=== PATIENT | male | born 1935 | race Caucasian/White ===

== ENCOUNTER 2019-09-28 16:14 | Emergency (ER) | payer MEDICARE, OTHER ==
[2019-09-28 16:22] VITALS: BP 139/56
--- NOTE | 2019-09-28 16:57 | ER Document Report ---
ED Medical Screen (RME) - General Chief Complaint: Fall Injury Stated Complaint: FELL - RIGHT ELBOW Time Seen by Provider: 09/28/19 16:46 Primary Care Provider: ALVARO SCHRADER MD [Primary Care Provider] - Follow up as needed Mode of Arrival: Ambulatory Information source: Patient Notes: 84-year-old male presents emergency department with right elbow laceration pain. Reports his dog jumped out of his arm and he fell and landed on his elbow. Patient is taking anticoagulants. Reports he did not hit his head. Also complains of some right shoulder pain. Laceration skin tear to the right elbow. Patient reports his tetanus is up-to-date I have greeted and performed a rapid initial assessment of this patient. A comprehensive ED assessment and evaluation of the patient, analysis of test results and completion of the medical decision making process will be conducted by additional ED providers. Past Medical History - Social History Chew tobacco use (# tins/day): No Frequency of alcohol use: None Drug Abuse: None - Past Medical History Cardiac Medical History: Reports: Hx Heart Attack, Hx Hypertension Endocrine Medical History: Reports: Hx Diabetes Mellitus Type 2 Renal/ Medical History: Reports: Hx Kidney Stones Past Surgical History: Reports: Hx Cardiac Catheterization, Hx Kidney (Renal Surgery) Physical Exam - Vital signs Vitals: Temp Pulse Resp BP Pulse Ox 97.9 F 59 L 16 139/56 H 96 09/28/19 16:21 09/28/19 16:21 09/28/19 16:21 09/28/19 16:21 09/28/19 16:21 Course - Vital Signs Vital signs: Temp Pulse Resp BP Pulse Ox 97.9 F 59 L 16 139/56 H 96 09/28/19 16:21 09/28/19 16:21 09/28/19 16:21 09/28/19 16:21 09/28/19 16:21 Doctor's Discharge - Discharge Referrals: ALVARO SCHRADER MD [Primary Care Provider] - Follow up as needed
--- NOTE | 2019-09-28 17:33 | RADIOLOGY REPORT (SQ) ---
EXAM DESCRIPTION: CT HEAD WITHOUT COMPLETED DATE/TIME: 09/28/2019 5:04 pm REASON FOR STUDY: fall taking antibx COMPARISON: None. TECHNIQUE: Axial images acquired through the brain without intravenous contrast. Images reviewed wi th bone, brain and subdural windows. Additional sagittal and coronal reconstructions were generated. Images stored on PACS. All CT scanners at this facility use dose modulation, iterative reconstruction, and/or weight based d osing when appropriate to reduce radiation dose to as low as reasonably achievable (ALARA). [facility]: Dose Right [facility]: CareDose [facility]: Dose Right [facility]: Teradose 4D [facility]: Smart [place] RADIATION DOSE: CT Rad equipment meets quality standard of care and radiation dose reduction techniq ues were employed. CTDIvol: 53.2 mGy. DLP: 1097 mGy-cm. mGy. LIMITATIONS: None. FINDINGS: VENTRICLES: Prominent ventricles secondary to involutional atrophy. CEREBRUM: Cortical atrophy. No masses. No hemorrhage. No midline shift. No evidence for acute inf arction. Areas of low density in the white matter most likely chronic small vessel ischemic changes. CEREBELLUM: No masses. No hemorrhage. No alteration of density. No evidence for acute infarction. EXTRAAXIAL SPACES: No fluid collections. No masses. ORBITS AND GLOBE: No intra- or extraconal masses. Normal contour of globe without masses. CALVARIUM: No fracture. PARANASAL SINUSES: No fluid or mucosal thickening. SOFT TISSUES: No mass or hematoma. OTHER: No other significant finding. IMPRESSION: MICROVASCULAR ISCHEMIA AND GENERALIZED ATROPHY. NO ACUTE IMAGING FINDINGS IN THE BRAIN EVIDENCE OF ACUTE STROKE: NO. COMMENT: Quality ID # [id number]: Final reports with documentation of one or more dose reduction techniques (e.g., Automated exposure control, adjustment of the mA and/or kV according to patient size, use of iterative reconstruction technique) TECHNICAL DOCUMENTATION: JOB ID: [id number] [employer]- All Rights Reserved Reading location - IP/workstation name: [email or web address]
--- NOTE | 2019-09-28 17:39 | RADIOLOGY REPORT (SQ) ---
EXAM DESCRIPTION: ELBOW RIGHT OVER 2 VIEWS COMPLETED DATE/TIME: 09/28/2019 5:12 pm REASON FOR STUDY: fall taking antibx COMPARISON: None. NUMBER OF VIEWS: Four views. TECHNIQUE: AP, lateral, and both oblique radiographic images acquired of the right elbow. LIMITATIONS: None. FINDINGS: MINERALIZATION: Normal. BONES: No fracture dislocation. There is a small olecranon spur. JOINT: No effusion. SOFT TISSUES: No soft tissue swelling. No foreign body. OTHER: No other significant finding. IMPRESSION: No acute finding. Olecranon spur. TECHNICAL DOCUMENTATION: JOB ID: [id number] [employer]- All Rights Reserved Reading location - IP/workstation name: [email or web address]
--- NOTE | 2019-09-28 17:51 | ER Document Report ---
HPI - HPI Patient complains to provider of: elbow injury Time Seen by Provider: 09/28/19 16:46 Onset: Just prior to arrival Onset/Duration: Sudden Quality of pain: No pain Pain Level: Denies Context: 84-year-old male presents emergency department with right elbow laceration and pain. Reports his dog jumped out of his arm and he fell and landed on his elbow. Patient is taking anticoagulants. Reports he did not hit his head. Also complains of some right shoulder pain. Laceration skin tear to the right elbow. Patient reports his tetanus is up-to-date Associated Symptoms: None Exacerbated by: Denies Relieved by: Denies Similar symptoms previously: No Recently seen / treated by doctor: No - MUSCULOSKELETAL Musculoskeletal: REPORTS: Extremity pain - right elbow Past Medical History - General Information source: Patient - Social History Smoking Status: Never Smoker Chew tobacco use (# tins/day): No Frequency of alcohol use: None Drug Abuse: None Occupation: retired Lives with: Family Family History: None Patient has suicidal ideation: No Patient has homicidal ideation: No - Past Medical History Cardiac Medical History: Reports: Hx Heart Attack, Hx Hypertension Endocrine Medical History: Reports: Hx Diabetes Mellitus Type 2 Renal/ Medical History: Reports: Hx Kidney Stones Past Surgical History: Reports: Hx Cardiac Catheterization, Hx Kidney (Renal Surgery) Vertical Provider Document - CONSTITUTIONAL Agree With Documented VS: Yes Exam Limitations: No Limitations General Appearance: WD/WN, No Apparent Distress - happy, laughing telling jokes and stories - HEENT HEENT: Atraumatic, Normocephalic, PERRLA - NECK Neck: Supple - RESPIRATORY Respiratory: No Respiratory Distress - MUSCULOSKELETAL/EXTREMETIES Musculoskeletal/Extremeties: MAEW, FROM, Tender - right elbow ttp with skin tear no active bleeding, ecchymosis noted good radial pulse, cap refill normal for age - NEURO Level of Consciousness: Awake, Alert, Appropriate Motor/Sensory: No Motor Deficit - DERM Integumentary: Warm, Dry Adult Front & Back Diagram: 1 - skin tear Course - Re-evaluation Re-evalutation: 09/28/19 18:18 Elbow X-Ray 09/28/19 16:53 IMPRESSION: No acute finding. Olecranon spur. Head CT 09/28/19 16:53 IMPRESSION: MICROVASCULAR ISCHEMIA AND GENERALIZED ATROPHY. NO ACUTE IMAGING FINDINGS IN THE BRAIN EVIDENCE OF ACUTE STROKE: NO. Right elbow skin tear cleaned really well by Michaela PCT Steri-Strips applied with dressing and Kerlix. Patient was instructed on signs and symptoms of infection. Instructed to follow-up with primary care for recheck within 1 week. Patient and were also instructed on signs and symptoms of head injury. They verbalized understanding to all instructions. - Vital Signs Vital signs: Temp Pulse Resp BP Pulse Ox 97.9 F 59 L 16 139/56 H 96 09/28/19 16:21 09/28/19 16:21 09/28/19 16:21 09/28/19 16:21 09/28/19 16:21 Discharge - Discharge Clinical Impression: Fall, Skin tear of right elbow without complication Condition: Stable Disposition: HOME, SELF-CARE Instructions: Skin Tear ([facility]), Care of Steri-Strip Closure ([facility]) Additional Instructions: *You have been treated post fall for a skin tear to your right elbow Your CT was negative for an acute bleed. Your elbow x-ray was negative for acute fracture *Steri-Strips have been applied to your skin tear. Monitor the area for signs of infection such as increasing pain, redness, swelling, warmth *Keep the area clean *Follow up with a primary care provider within 1 week *Return to ED for signs of infection, worsening condition, changes, needs, changes in mental status, concerns Monitor your blood pressure. Your blood pressure was elevated today. This may be because you were anxious, in pain or because you need medication. It is important to follow up with your primary care provider for full evaluation. Forms: Elevated Blood Pressure
== END 2019-09-28 18:27 | disposition home or self-care (01) ==
LOC: ER 16:14
DX: S51.011A Laceration without foreign body of right elbow, initial encounter (principal); M25.521 Pain in right elbow; W19.XXXA Unspecified fall, initial encounter; E11.9 Type 2 diabetes mellitus without complications
CPT/HCPCS: 70450; 99284